=== PATIENT | female | born 1950 | race Caucasian/White ===

== ENCOUNTER 2018-08-31 06:02 | Emergency (ER) | payer MEDICARE, OTHER ==
--- NOTE | 2018-08-31 06:50 | ERPHSYRPT ---
- History of Present Illness Historian: patient Exam Limitations: no limitations Patient Subjective Stated Complaint: pt states she has been having abd pain, rt flank/back pain since approx 0300 Triage Nursing Assessment: pt alert and oriented, answers questions approp. pt ambulatory with limping gati ntoed. respirations nonlabored with rupert ngs cta. abd soft and nontender with bowel sounds present. no tendernes noted to rt back. pt unable to provide urine sample at this time. Timing/Duration: today, hour(s) (3), intermittent, sudden, worse Activities at Onset: none Quality: sharpness Abdominal Pain Onset Location: epigastric, flank (right) Pain Radiation: no radiation Severity of Pain-Max: severe Severity of Pain-Current: severe Modifying Factors: Improves With: nothing Associated Symptoms: nausea, vomiting Previous symptoms: same symptoms as today, recently seen (Jul 14) Hx Tetanus, Diphtheria Vaccination/Date Given: No Hx Influenza Vaccination/Date Given: Yes Hx Pneumococcal Vaccination/Date Given: Yes Immunizations Up to Date: No <NARGIS SAXENA - Last Filed: 08/31/18 06:55> <DEAN READ - Last Filed: 08/31/18 11:36> - History of Present Illness Time Seen by Provider: 08/31/18 06:37 Physician History: The patient is a 68-year-old female complaining of the return of her back and abdominal pain that began on July 14. She had a sudden onset of back and right sided abdominal pain on July 14 and was seen and evaluated extensively at [facility] at that time. She was given a pain medicine that she doesn 't recall at this time. Her pain went away. Since July 14, she has not felt "well". Her stools have become a reweaver brown in color and they're softer and consistency. Tonight at about 3 or 3:30 she had once again a sudden onset of right-sided back pain and right-sided flank pain and at times mid abdominal pain. The back pain seems to intensify then let up. The abdominal pain is currently not present. She had some nausea with some scant vomiting this morning. She denies fever or chills. She denies any urinary problems. She has had one colonoscopy at age 48. She is scheduled to have a colonoscopy on September 24. Her past medical history significant for right hip replacement and HTN. (NARGIS SAXENA) Allergies/Adverse Reactions: Penicillins Allergy (Verified 08/31/18 06:25) Home Medications: Azilsartan Med/Chlorthalidone [Edarbyclor 40-25 mg Tablet] 1 each PO DAILY 08/31 [History] Potassium Chloride 10 Meq Tab* [Klor Con 10 MEQ] 10 meq PO DAILY 08/31/18 [ History] - Review of Systems Constitutional: No Fever, No Chills Eyes: No Symptoms Ears, Nose, & Throat: No Symptoms Respiratory: No Cough, No Dyspnea Cardiac: No Chest Pain, No Edema, No Syncope Abdominal/Gastrointestinal: Abdominal Pain, Nausea, Vomiting Genitourinary Symptoms: No Dysuria Musculoskeletal: No Back Pain, No Neck Pain Skin: No Rash Neurological: No Dizziness, No Focal Weakness, No Sensory Changes Psychological: No Symptoms Endocrine: No Symptoms Hematologic/Lymphatic: No Symptoms Immunological/Allergic: No Symptoms All Other Systems: Reviewed and Negative <NARGIS SAXENA - Last Filed: 08/31/18 06:55> - Past Medical History Pertinent Past Medical History: Yes Neurological History: No Pertinent History Cardiac History: Hypertension Respiratory History: No Pertinent History Endocrine Medical History: No Pertinent History Musculoskeletal History: Arthritis - Past Surgical History Past Surgical History: Yes Musculoskeletal: Orthopedic Surgery Other Surgical History: total hip 2018 - Social History Smoking Status: Former smoker Exposure to second hand smoke: No Drug Use: none Patient Lives Alone: Yes <NARGIS SAXENA - Last Filed: 08/31/18 06:55> - Physical Exam General Appearance: moderate distress, obese Eye Exam: PERRL/EOMI, eyes nml inspection Ears, Nose, Throat Exam: normal ENT inspection, pharynx normal, moist mucous membranes Neck Exam: normal inspection, non-tender, supple, full range of motion Respiratory Exam: normal breath sounds, lungs clear, No respiratory distress Cardiovascular Exam: regular rate/rhythm, normal heart sounds Gastrointestinal/Abdomen Exam: soft, No tenderness Pelvic Exam: not done Rectal Exam: not done Back Exam: normal inspection, normal range of motion, No CVA tenderness, No vertebral tenderness, No point tenderness Extremity Exam: normal inspection, normal range of motion, pelvis stable Neurologic Exam: alert, oriented x 3, cooperative, normal mood/affect, nml cerebellar function, sensation nml, No motor deficits Skin Exam: normal color, warm, dry SpO2 Interpretation: normal SpO2: 99 Oxygen Delivery: Room Air <SAXENANARGIS - Last Filed: 08/31/18 06:55> - Nursing Vital Signs Nursing Vital Signs: Initial Vital Signs Temperature 97.3 F 08/31/18 06:08 Pulse Rate 91 H 08/31/18 06:08 Respiratory Rate 18 08/31/18 06:08 Blood Pressure 168/86 08/31/18 06:08 O2 Sat by Pulse Oximetry 99 08/31/18 06:08 Pain Scale Pain Intensity 4 - CT Exams Abdomen/Pelvis CT Interpretation: Discussed w/radiologist (normal appendix, scattered small mid abdominal mesenteric nodes with stranding, probable mesenteric adenitis, Small hiatal hernia, splenic granulomas. distended gallbladder without stones, 6mm nonobstructing right renal stone, sigmoid diverticulosis ) Chest CT Interpretation: Discussed w/radiologist, No PE - Radiology Ultrasound Exam Gallbladder Ultrasound: discussed w/radiologist (DISTENDED GALLBLADDER WITH A NON-MOBILE LINEAR, HYPERECHOGENICITY DETAILED EITHER POLYP VERSUS GALLBLADDER FOLD VS CALCULUS, NEGATIVE FOR CHOLECYSTITIS OR BILIARY DISTENTION) <DEAN READ - Last Filed: 08/31/18 11:36> Ordered Tests: Active Orders 24 hr Category Date Time Status Clean Catch Urine Specimen STAT Care 08/31/18 06:52 Active EKG-ER Only STAT Care 08/31/18 06:52 Active IV Insertion STAT Care 08/31/18 06:52 Active ABDOMEN AND PELVIS W/0 CONTRAS [CT] Stat Exams 08/31/18 06:53 Completed CHEST WITH CONTRAST [CT] Stat Exams 08/31/18 08:20 Completed GALLBLADDER [US] Stat Exams 08/31/18 10:17 Completed AMYLASE Stat Lab 08/31/18 06:45 Completed CBC W DIFF Stat Lab 08/31/18 06:45 Completed CMP Stat Lab 08/31/18 06:45 Completed D-DIMER QUANTITATION Stat Lab 08/31/18 08:04 Completed LIPASE Stat Lab 08/31/18 06:45 Completed TROPONIN Q3H Lab 08/31/18 06:45 Completed UA W/RFX UR CULTURE Stat Lab 08/31/18 09:31 Completed Medication Summary Discontinued Medications Generic Name Dose Route Start Last Admin Trade Name Freq PRN Reason Stop Dose Admin Hydromorphone HCl 1 mg 08/31/18 06:52 08/31/18 07:06 Hydromorphone 1 Mg/Ml Ampule IV 08/31/18 06:53 1 mg STAT ONE Administration Hydromorphone HCl Confirm 08/31/18 06:57 Hydromorphone 1 Mg/Ml Ampule Administered 08/31/18 06:58 Dose 1 mg .ROUTE .STK-MED ONE Sodium Chloride 1,000 mls @ 999 mls/hr 08/31/18 06:52 08/31/18 07:03 Sodium Chloride 0.9% 1000 Ml IV 08/31/18 07:52 999 mls/hr .Q1H1M STA Administration Sodium Chloride Confirm 08/31/18 06:58 Sodium Chloride 0.9% 1000 Ml Administered 08/31/18 06:59 Dose 1,000 mls @ ud .ROUTE .STK-MED ONE Ketorolac Tromethamine 15 mg 08/31/18 06:54 08/31/18 07:10 Toradol 30 Mg Injection IV 08/31/18 06:55 15 mg STAT ONE Administration Ketorolac Tromethamine Confirm 08/31/18 06:57 Toradol 30 Mg Injection Administered 08/31/18 06:58 Dose 30 mg .ROUTE .STK-MED ONE Promethazine HCl 12.5 mg 08/31/18 06:52 08/31/18 07:06 Phenergan 25 Mg Inj IV 08/31/18 06:53 12.5 mg STAT ONE Administration Promethazine HCl Confirm 08/31/18 06:57 Phenergan 25 Mg Inj Administered 08/31/18 06:58 Dose 25 mg .ROUTE .STK-MED ONE Lab/Rad Data: Laboratory Result Diagrams 08/31/18 06:45 08/31/18 06:45 Laboratory Results 08/31/18 08/31/18 08/31/18 Range/Units 09:31 08:04 06:45 WBC (4.0-10.5) K/mm3 RBC (4.1-5.4) M/mm3 Hgb (12.0-16.0) gm/dl Hct (35-47) % MCV (78-100) fl MCH (26-32) pg MCHC (32-36) g/dl RDW (11.5-14.0) % Plt Count (150-450) K/mm3 MPV (6-9.5) fl Gran % (36.0-66.0) % Eos # (Auto) (0-0.5) Absolute Lymphs (auto) (1.0-4.6) Absolute Monos (auto) (0.0-1.3) Lymphocytes % (24.0-44.0) % Monocytes % (0.0-12.0) % Eosinophils % (0.00-5.0) % Basophils % (0.0-0.4) % Absolute Granulocytes (1.4-6.9) Basophils # (0-0.4) D-Dimer 966 H* (215-500) ng/mL Sodium (137-145) mmol/L Potassium (3.5-5.1) mmol/L Chloride (98-107) mmol/L Carbon Dioxide (22-30) mmol/L Anion Gap (5-15) MEQ/L BUN (7-17) mg/dL Creatinine (0.52-1.04) mg/dL Estimated GFR ML/MIN Glucose (74-106) mg/dL Calcium (8.4-10.2) mg/dL Total Bilirubin (0.2-1.3) mg/dL AST (14-36) U/L ALT (0-35) U/L Alkaline Phosphatase (38-126) U/L Troponin I < 0.012 (0.000-0.034) ng/mL Serum Total Protein (6.3-8.2) g/dL Albumin (3.5-5.0) g/dL Amylase (30-110) U/L Lipase (23-300) U/L Urine Color STRAW (YELLOW) Urine Appearance CLEAR (CLEAR) Urine pH 5.0 (5-6) Ur Specific [place] 1.020 (1.005-1.025) Urine Protein NEGATIVE (Negative) Urine Ketones NEGATIVE (NEGATIVE) Urine Blood SMALL (0-5) [place]/ul Urine Nitrite NEGATIVE (NEGATIVE) Urine Bilirubin NEGATIVE (NEGATIVE) Urine Urobilinogen NEGATIVE (0-1) mg/dL Ur Leukocyte Esterase NEGATIVE (NEGATIVE) Urine WBC (Auto) NONE (0-5) /HPF Urine RBC (Auto) NONE (0-2) /HPF U Epithel Cells (Auto) RARE (FEW) /HPF Urine Bacteria (Auto) NONE SEEN (NEGATIVE) /HPF Urine Mucus (Auto) SLIGHT (NEGATIVE) /HPF Urine Culture Reflexed NO (NO) Urine Glucose NEGATIVE (NEGATIVE) mg/dL 08/31/18 08/31/18 Range/Units 06:45 06:45 WBC 8.4 (4.0-10.5) K/mm3 RBC 4.52 (4.1-5.4) M/mm3 Hgb 12.4 (12.0-16.0) gm/dl Hct 38.1 (35-47) % MCV 84.3 (78-100) fl MCH 27.4 (26-32) pg MCHC 32.5 (32-36) g/dl RDW 14.5 H (11.5-14.0) % Plt Count 255 (150-450) K/mm3 MPV 9.4 (6-9.5) fl Gran % 69.0 H (36.0-66.0) % Eos # (Auto) 0.13 (0-0.5) Absolute Lymphs (auto) 1.70 (1.0-4.6) Absolute Monos (auto) 0.74 (0.0-1.3) Lymphocytes % 20.2 L (24.0-44.0) % Monocytes % 8.8 (0.0-12.0) % Eosinophils % 1.5 (0.00-5.0) % Basophils % 0.5 (0.0-0.4) % Absolute Granulocytes 5.82 (1.4-6.9) Basophils # 0.04 (0-0.4) D-Dimer (215-500) ng/mL Sodium 140 (137-145) mmol/L Potassium 3.5 (3.5-5.1) mmol/L Chloride 105 (98-107) mmol/L Carbon Dioxide 25 (22-30) mmol/L Anion Gap 13.4 (5-15) MEQ/L BUN 21 H (7-17) mg/dL Creatinine 0.79 (0.52-1.04) mg/dL Estimated GFR > 60.0 ML/MIN Glucose 129 H (74-106) mg/dL Calcium 10.0 (8.4-10.2) mg/dL Total Bilirubin 0.30 (0.2-1.3) mg/dL AST 19 (14-36) U/L ALT 16 (0-35) U/L Alkaline Phosphatase 130 H (38-126) U/L Troponin I (0.000-0.034) ng/mL Serum Total Protein 7.7 (6.3-8.2) g/dL Albumin 4.3 (3.5-5.0) g/dL Amylase 85 (30-110) U/L Lipase 243 (23-300) U/L Urine Color (YELLOW) Urine Appearance (CLEAR) Urine pH (5-6) Ur Specific [place] (1.005-1.025) Urine Protein (Negative) Urine Ketones (NEGATIVE) Urine Blood (0-5) [place]/ul Urine Nitrite (NEGATIVE) Urine Bilirubin (NEGATIVE) Urine Urobilinogen (0-1) mg/dL Ur Leukocyte Esterase (NEGATIVE) Urine WBC (Auto) (0-5) /HPF Urine RBC (Auto) (0-2) /HPF U Epithel Cells (Auto) (FEW) /HPF Urine Bacteria (Auto) (NEGATIVE) /HPF Urine Mucus (Auto) (NEGATIVE) /HPF Urine Culture Reflexed (NO) Urine Glucose (NEGATIVE) mg/dL <NARGIS SAXENA - Last Filed: 08/31/18 06:55> - Progress Counseled pt/family regarding: lab results, diagnosis, need for follow-up, rad results <DEAN READ - Last Filed: 08/31/18 11:36> - Progress Progress Note: 08/31/18 06:56 Pts care discussed and care transferred to Dr Read at 07:00. (NARGIS SAXENA) 08/31/18 08:02 CHEST EXAM: THERE IS TENDERNESS OVER RIGHT POSTERIOR WALL PARASPINAL THORACIC SPINE FROM THE 8TH TO 10TH RIBS NO CREPITUS OR SWELLING ABDOMEN: SOFT ACTIVE BOWEL SOUNDS AND WITH PERIUMBILICAL TENDERNES WITHOUT GUARDING OR REBOUND TENDERNESS. 08/31/18 08:19-ELEVATED D-DIMER 966 WITH RIGTH POSTERIOR CHEST PAIN AND TENDERNESS, (DEAN READ) <NARGIS SAXENA - Last Filed: 08/31/18 06:55> - Departure Time of Disposition: 11:35 Departure Disposition: Home Critical Care Time: No <DEAN READ - Last Filed: 08/31/18 11:36> - Departure Clinical Impression: ACUTE ABDOMINAL PAIN Condition: Stable Referrals: ROSANGELA DICKINSON [Primary Care Provider] - Additional Instructions: ZOFRAN 4MG EVERY 6 HOURS FOR NAUSEA NEEDED. CONSULT YOUR PRIMARY CARE PROVIDER FOR FOLLOWUP IN 1 WEEK. Prescriptions: Ondansetron ODT 4 MG [Zofran Odt 4 mg] 4 mg PO Q6H PRN PRN #8 tab.rapdis PRN Reason: Nausea
[2018-08-31] MEDS ORDERED: Sodium Chloride 0.9% 1000 ML 1,000 ML IV STA (06:52)
[2018-08-31] MEDS ORDERED: Hydromorphone 1 mg/ml Ampule IV ONE (06:52)
[2018-08-31] MEDS ORDERED: Phenergan 25 MG INJ IV ONE (06:52)
[2018-08-31] MEDS ORDERED: TORAdol 30 mg Injection IV ONE (06:54)
[2018-08-31] MEDS ORDERED: Phenergan 25 MG INJ ONE (06:57)
[2018-08-31] MEDS ORDERED: Hydromorphone 1 mg/ml Ampule ONE (06:57)
[2018-08-31] MEDS ORDERED: TORAdol 30 mg Injection ONE (06:57)
[2018-08-31] MEDS ORDERED: Sodium Chloride 0.9% 1000 ML 1,000 ML ONE (06:58)
[2018-08-31 07:00] LABS: BASOPHIL % 0.5 % (0.0-0.4); Basophil (Absolute #) 0.04 (0-0.4); Eosinophil % 1.5 % (0.00-5.0); Eosinophil (Absolute #) 0.13 (0-0.5); Granulocyte Absolute (ANC) 5.82 (1.4-6.9); Hematocrit 38.1 % (35-47); Hemoglobin 12.4 gm/dl (12.0-16.0); Lymphocytes % 20.2 % (24.0-44.0); Mean Cell Volume 84.3 fl (78-100); Mean Corpuscular Hemoglobin 27.4 pg (26-32); Mean Corpuscular Hgb Concent. 32.5 g/dl (32-36); Mean Platelet Volume 9.4 fl (6-9.5); Monocyte (Absolute #) 0.74 (0.0-1.3); Monocytes % 8.8 % (0.0-12.0); Platelet Count 255 K/mm3 (150-450); Red Blood Count 4.52 M/mm3 (4.1-5.4); Red Cell Distribution Width 14.5 % (11.5-14.0); White Blood Count 8.4 K/mm3 (4.0-10.5)
[2018-08-31 07:13] LABS: ALBUMIN 4.3 g/dL (3.5-5.0); ALKALINE PHOSPHATASE 130 U/L (38-126); AMYLASE 85 U/L (30-110); ANION GAP 13.4 MEQ/L (5-15); BLOOD UREA NITROGEN 21 mg/dL (7-17); CHLORIDE 105 mmol/L (98-107); Carbon Dioxide 25 mmol/L (22-30); Creatinine 1 0.79 mg/dL (0.52-1.04); Glucose 129 mg/dL (74-106); LIPASE 243 U/L (23-300); Potassium 3.5 mmol/L (3.5-5.1); SGOT/AST 19 U/L (14-36); SGPT/ALT 16 U/L (0-35); SODIUM 140 mmol/L (137-145); Total Protein 7.7 g/dL (6.3-8.2)
--- NOTE | 2018-08-31 09:37 | XRAY ---
Indication: Posterior chest wall pain. Nausea and vomiting. Elevated d-dimer. Multiple contiguous axial images obtained through the chest using 100 cc Isovue 370 contrast and PE protocol. Comparison: None There is good opacification of the pulmonary arteries to include the lobar and segmental branches. No filling defect or pulmonary embolus. Heart is borderline enlarged. Aorta is normal in course and caliber. No pathologic mediastinal/hilar lymphadenopathy. Small hiatal hernia. Examination of the lung parenchyma demonstrates mild bilateral dependent atelectasis and minimal bibasilar fibrosis/scarring. No suspicious pulmonary mass, infiltrate, or effusion. Bony thorax intact with mild degenerative changes throughout the spine. CT abdomen reported separately. Impression: 1. Negative pulmonary embolus. No acute cardiopulmonary abnormalities. 2. Incidental borderline cardiomegaly and small hiatal hernia. CT DI 23.68
--- NOTE | 2018-08-31 09:41 | XRAY ---
Indication: Right back pain. History kidney stone. Multiple contiguous axial images obtained through the abdomen and pelvis without contrast as ordered. Comparison: None CT chest reported separately. Right hip bipolar prosthesis produces beam artifact. Small hiatal hernia. Noncontrasted stomach and bowel loops appear nonobstructed. Normal appendix. Scattered descending and sigmoid diverticulosis without diverticulitis. No free fluid/air. Mean abdomen demonstrates scattered centimeter/subcentimeter mesenteric nodes with stranding favoring mesenteric adenitis. 6 mm nonobstructing right mid renal calculus and 1.7 cm left mid renal exophytic cyst. Distended gallbladder without gallstones or biliary distention. Hepatic/splenic calcified granulomas. Remaining liver, pancreas, adrenal glands, spleen, kidneys, ureters, bladder, and uterus appear unremarkable for noncontrast exam. Minimal aortoiliac calcifications without AAA. Osseous structures intact with mild degenerative changes throughout the thoracolumbar spine. Mild levoscoliosis and right hip arthroplasty. No ventral or inguinal hernias. Impression: 1. Scattered mid abdomen mesenteric nodes with stranding favoring mesenteric adenitis. 2. Distended gallbladder without gallstones. Gallbladder sonogram may yield further information if clinically warranted. 3. Incidental hiatal hernia, nonobstructing right renal calculus, left renal cyst, colonic diverticulosis, and evidence for old granulomatous disease. CT DI 23.68
[2018-08-31 09:44] LABS: Appearance CLEAR (CLEAR); Bilirubin NEGATIVE (NEGATIVE); Blood SMALL Ery/ul (0-5); Glucose NEGATIVE (NEGATIVE); Ketones NEGATIVE (NEGATIVE); Leukocyte Esterase NEGATIVE (NEGATIVE); Nitrite NEGATIVE (NEGATIVE); Protein,Urine Dip NEGATIVE (Negative); Urobilinogen NEGATIVE mg/dL (0-1)
--- NOTE | 2018-08-31 10:42 | XRAY ---
Indication: Abdomen pain. Distended gallbladder on same-day CT. Two-dimensional gallbladder sonogram performed. Comparison: None Gallbladder appears moderately distended. There is a 1.2 cm non-mobile linear hyperechogenicity near the neck of the gallbladder either polyp versus gallbladder fold versus calculus. No gallbladder wall thickening or pericholecystic fluid. Common bile duct measures 6.2 mm. No intrahepatic biliary distention. Mild fatty echogenic liver without focal solid/cystic mass. No ascites. Remaining visualized portions of the pancreas and right kidney appear sonographically unremarkable. Right kidney measures 10 cm in length. Impression: 1. Distended gallbladder with a non-mobile linear hyperechogenicity as detailed either polyp versus gallbladder fold versus calculus. Negative for cholecystitis or biliary distention. 2. Fatty echogenic liver.
[2018-08-31 10:55] VITALS: BP 133/65
[2018-08-31 12:05] VITALS: PULSE 76; O2SAT 98
== END 2018-08-31 11:50 | disposition home or self-care (01) ==
LOC: ED 06:02
DX: R10.13 Epigastric pain (principal); R11.2 Nausea with vomiting, unspecified; R10.9 Unspecified abdominal pain; R07.9 Chest pain, unspecified; R79.1 Abnormal coagulation profile; Z79.899 Other long term (current) drug therapy
CPT/HCPCS: 36000; 36415; 71260; 74176; 76705; 80053; 81001; 82150; 83690; 84484; 85025; 85379; 93005; 96360; 96374; 96375; 99284; J1170; J1885; J2550

== ENCOUNTER 2018-09-24 05:58 | Day surgery (SDC) | payer MEDICARE, OTHER ==
[2018-09-24] MEDS ORDERED: DIPRIVAN 200 MG/20 ML IV ONE (05:59)
[2018-09-24] MEDS ORDERED: Ketamine HCl 50 MG/ML IJ ONE (05:59)
[2018-09-24] MEDS ORDERED: Lactated Ringers 1,000 ML IV SCH (06:30)
--- NOTE | 2018-09-24 09:13 | OP ---
AMENDED REPORT: SURGERY DATE/TIME: 09/24/2018 0840 PREOPERATIVE DIAGNOSIS: Screening exam. POSTOPERATIVE DIAGNOSIS: Moderate to severe sigmoid diverticulosis otherwise normal colon. PROCEDURE: Colonoscopy. SURGEON: Dr. Jerry. ANESTHESIA: MAC. Medications given by anesthesia department. HISTORY: The patient is a 68 year-old white female presenting now for colonoscopic evaluation. She reports she has had some change in her bowel habits and some back pain. She reports it has been 20 years since her previous since her previous colonoscopy. The patient was felt to need to have endoscopic evaluation. She was appraised of the risks of the procedure including the risk of perforation, phlebitis, untoward reaction to medication, bleeding and missed lesions. The patient verbalized her understanding and desired to have the procedure performed. DESCRIPTION OF PROCEDURE: The patient was given the medications by the anesthesia department. She had continuous pulse oximetry, ECG monitoring, intermittent blood pressure monitoring and tidal CO2 monitoring during the examination. She was placed in the left lateral decubitus position. A digital rectal examination was performed and revealed normal anal sphincter tone and no masses. The flexible Olympus pediatric colonoscope was used to intubate the rectum. A view of the colon was developed sequentially to the cecum. Upon insertion and withdrawal was noted moderate to severe sigmoid diverticulosis. No other mucosal lesions being encountered the scope was removed from the patient who tolerated the procedure well and was sent back to OP recovery in good condition. The prep was noted to be fair to good.
[2018-09-24 10:39] VITALS: BP 123/67; PULSE 57; O2SAT 98
== END 2018-09-24 10:45 | disposition home or self-care (01) ==
LOC: SDC 05:58
PROVIDERS: ATTEND Family Medicine
DX: Z12.11 Encounter for screening for malignant neoplasm of colon (principal); K57.30 Diverticulosis of large intestine without perforation or abscess without bleeding; R19.4 Change in bowel habit; I10 Essential (primary) hypertension; K21.9 Gastro-esophageal reflux disease without esophagitis
CPT/HCPCS: 99100; J2704

== ENCOUNTER 2018-10-11 13:17 | Emergency (ER) | payer MEDICARE, OTHER ==
[2018-10-11] MEDS ORDERED: Zofran 4 MG/2 ML VIAL IV ONE (13:53)
[2018-10-11] MEDS ORDERED: Hydromorphone 1 mg/ml Ampule IV ONE (13:53)
[2018-10-11] MEDS ORDERED: Sodium Chloride 0.9% 1000 ML 1,000 ML IV STA (13:53)
--- NOTE | 2018-10-11 13:57 | ERPHSYRPT ---
- History of Present Illness Time Seen by Provider: 10/11/18 13:50 Historian: patient, family Exam Limitations: no limitations Patient Subjective Stated Complaint: ruq abd pain since 629 today that radiates into her back. hx gallbladder disease and is supposed to have gb surgery on oct 29. Triage Nursing Assessment: ambulated to room per self. skin w/d, color normal, resp easy. holding abd, moaning occasionally. bowel sounds normal. abd soft, tender. Physician History: The patient is a 68-year-old female complaining of right upper quadrant pain radiating through to her back that began at 6:30 this morning or about 7 hours ago. Since July, she is had "gallbladder attacks". The attacks have only lasted several minutes. This one has lasted much longer. She vomited slightly. She has seen a surgeon and is scheduled to have her gallbladder removed October 29. She did not eat anything this morning prior to the attack. She denies fever or chills. She denies diarrhea. Her past medical history is significant for hypertension, GERD, and gallbladder problems. Timing/Duration: today, hour(s) (7), constant, sudden, worse Activities at Onset: none Quality: sharpness, stabbing Abdominal Pain Onset Location: RUQ Pain Radiation: back Severity of Pain-Max: severe Severity of Pain-Current: severe Modifying Factors: Improves With: vomiting Associated Symptoms: nausea, vomiting Previous symptoms: same symptoms as today, recently seen Allergies/Adverse Reactions: Penicillins Allergy (Verified 10/11/18 13:32) Home Medications: Azilsartan Med/Chlorthalidone [Edarbyclor 40-25 mg Tablet] 1 each PO DAILY 08/31 [History] Potassium Chloride 10 Meq Tab* [Klor Con 10 MEQ] 10 meq PO DAILY 08/31/18 [ History] Aspirin EC 81 mg [Ecotrin 81 mg] 81 mg PO DAILY 09/13/18 [History] Esomeprazole Magnesium [Nexium] 40 mg PO DAILY 10/11/18 [History] Hx Tetanus, Diphtheria Vaccination/Date Given: No Hx Influenza Vaccination/Date Given: Yes Hx Pneumococcal Vaccination/Date Given: Yes - Review of Systems Constitutional: No Fever, No Chills Eyes: No Symptoms Ears, Nose, & Throat: No Symptoms Respiratory: No Cough, No Dyspnea Cardiac: No Chest Pain, No Edema, No Syncope Abdominal/Gastrointestinal: Abdominal Pain, Nausea, Vomiting Genitourinary Symptoms: No Dysuria Musculoskeletal: No Back Pain, No Neck Pain Skin: No Rash Neurological: No Dizziness, No Focal Weakness, No Sensory Changes Psychological: No Symptoms Endocrine: No Symptoms Hematologic/Lymphatic: No Symptoms Immunological/Allergic: No Symptoms All Other Systems: Reviewed and Negative - Past Medical History Pertinent Past Medical History: Yes Neurological History: No Pertinent History ENT History: No Pertinent History Cardiac History: Hypertension Respiratory History: No Pertinent History Endocrine Medical History: No Pertinent History Musculoskeletal History: Arthritis GI Medical History: GERD, Gallbladder Disease History: No Pertinent History Psycho-Social History: No Pertinent History Female Reproductive Disorders: No Pertinent History - Past Surgical History Past Surgical History: Yes Neuro Surgical History: No Pertinent History Cardiac: No Pertinent History Respiratory: No Pertinent History Gastrointestinal: No Pertinent History Genitourinary: No Pertinent History Musculoskeletal: Orthopedic Surgery Female Surgical History: No Pertinent History Other Surgical History: total hip 2018 right - Social History Smoking Status: Former smoker Exposure to second hand smoke: No Drug Use: none Patient Lives Alone: Yes - Female History Hx Now: No - Nursing Vital Signs Nursing Vital Signs: Initial Vital Signs Temperature 97.5 F 10/11/18 13:24 Pulse Rate 82 10/11/18 13:24 Respiratory Rate 18 10/11/18 13:24 Blood Pressure 148/102 10/11/18 13:24 O2 Sat by Pulse Oximetry 96 10/11/18 13:24 Pain Scale Pain Intensity 2 - Physical Exam General Appearance: severe distress Eye Exam: PERRL/EOMI, eyes nml inspection Ears, Nose, Throat Exam: normal ENT inspection, pharynx normal, moist mucous membranes Neck Exam: normal inspection, non-tender, supple, full range of motion Respiratory Exam: normal breath sounds, lungs clear, No respiratory distress Cardiovascular Exam: regular rate/rhythm, normal heart sounds Gastrointestinal/Abdomen Exam: tenderness (RUQ) Pelvic Exam: not done Rectal Exam: not done Back Exam: normal inspection, normal range of motion, No CVA tenderness, No vertebral tenderness Extremity Exam: normal inspection, normal range of motion, pelvis stable Neurologic Exam: alert, oriented x 3, cooperative, normal mood/affect, nml cerebellar function, sensation nml, No motor deficits Skin Exam: normal color, warm, dry SpO2 Interpretation: normal SpO2: 96 O2 Delivery: Room Air - Course EKG Interpreted by Me: RATE, Sinus Rhythm, NORMAL AXIS, NORMAL INTERVALS, NORMAL QRS, NORMAL ST-T, Other (No change in EKG compared to EKG from 08/31/18.) - Radiology Ultrasound Exam Gallbladder Ultrasound: tele radiology report (per Dr Huerta), gall bladder stones (stable 1.6 cm non-mobile gallstone near neck of GB. No cholecystitis ors biliary distention.) Ordered Tests: Active Orders 24 hr Category Date Time Status Body And Frame Man STAT Care 10/11/18 14:06 Active EKG-ER Only STAT Care 10/11/18 13:53 Active IV Insertion STAT Care 10/11/18 13:53 Active Oxygen-ED Only Nasal Cannula 2 lpm Care 10/11/18 14:05 Active Pulse Oximetry (ED) STAT Care 10/11/18 14:05 Active GALLBLADDER [US] Stat Exams 10/11/18 13:54 Completed AMYLASE Stat Lab 10/11/18 14:00 Completed CBC W DIFF Stat Lab 10/11/18 14:00 Completed CMP Stat Lab 10/11/18 14:00 Completed CULTURE,URINE Stat Lab 10/11/18 14:25 Received LIPASE Stat Lab 10/11/18 14:00 Completed Lactic Acid Stat Lab 10/11/18 14:04 Results TROPONIN Q3H Lab 10/11/18 14:15 Completed TROPONIN Q3H Lab 10/11/18 17:15 Ordered TROPONIN Q3H Lab 10/11/18 20:15 Ordered TROPONIN Q3H Lab 10/11/18 23:15 Ordered TROPONIN Q3H Lab 10/12/18 02:15 Ordered UA W/RFX UR CULTURE Stat Lab 10/11/18 14:25 Completed Medication Summary Discontinued Medications Generic Name Dose Route Start Last Admin Trade Name Freq PRN Reason Stop Dose Admin Hydromorphone HCl 2 mg 10/11/18 13:53 10/11/18 14:03 Hydromorphone 1 Mg/Ml Ampule IV 10/11/18 13:54 2 mg STAT ONE Administration Hydromorphone HCl Confirm 10/11/18 13:59 Hydromorphone 1 Mg/Ml Ampule Administered 10/11/18 14:00 Dose 2 mg .ROUTE .STK-MED ONE Sodium Chloride 1,000 mls @ 999 mls/hr 10/11/18 13:53 10/11/18 14:04 Sodium Chloride 0.9% 1000 Ml IV 10/11/18 14:53 999 mls/hr .Q1H1M STA Administration Sodium Chloride Confirm 10/11/18 13:59 Sodium Chloride 0.9% 1000 Ml Administered 10/11/18 14:00 Dose 1,000 mls @ ud .ROUTE .STK-MED ONE Ondansetron HCl 4 mg 10/11/18 13:53 10/11/18 14:03 Zofran 4 Mg/2 Ml Vial IV 10/11/18 13:54 4 mg STAT ONE Administration Ondansetron HCl Confirm 10/11/18 13:59 Zofran 4 Mg/2 Ml Vial Administered 10/11/18 14:00 Dose 4 mg .ROUTE .STK-MED ONE Lab/Rad Data: Laboratory Result Diagrams 10/11/18 14:00 10/11/18 14:00 Laboratory Results 10/11/18 10/11/18 10/11/18 Range/Units 14:25 14:15 14:04 WBC (4.0-10.5) K/mm3 RBC (4.1-5.4) M/mm3 Hgb (12.0-16.0) gm/dl Hct (35-47) % MCV (78-100) fl MCH (26-32) pg MCHC (32-36) g/dl RDW (11.5-14.0) % Plt Count (150-450) K/mm3 MPV (6-9.5) fl Gran % (36.0-66.0) % Eos # (Auto) (0-0.5) Absolute Lymphs (auto) (1.0-4.6) Absolute Monos (auto) (0.0-1.3) Lymphocytes % (24.0-44.0) % Monocytes % (0.0-12.0) % Eosinophils % (0.00-5.0) % Basophils % (0.0-0.4) % Absolute Granulocytes (1.4-6.9) Basophils # (0-0.4) Sodium (137-145) mmol/L Potassium (3.5-5.1) mmol/L Chloride (98-107) mmol/L Carbon Dioxide (22-30) mmol/L Anion Gap (5-15) MEQ/L BUN (7-17) mg/dL Creatinine (0.52-1.04) mg/dL Estimated GFR ML/MIN Glucose (74-106) mg/dL Lactic Acid 3.0 H (0.4-2.0) Calcium (8.4-10.2) mg/dL Total Bilirubin (0.2-1.3) mg/dL AST (14-36) U/L ALT (0-35) U/L Alkaline Phosphatase (38-126) U/L Troponin I < 0.012 (0.000-0.034) ng/mL Serum Total Protein (6.3-8.2) g/dL Albumin (3.5-5.0) g/dL Amylase (30-110) U/L Lipase (23-300) U/L Urine Color YELLOW (YELLOW) Urine Appearance CLOUDY (CLEAR) Urine pH 5.0 (5-6) Ur Specific [place] 1.024 (1.005-1.025) Urine Protein 30 (Negative) Urine Ketones NEGATIVE (NEGATIVE) Urine Blood SMALL (0-5) [place]/ul Urine Nitrite NEGATIVE (NEGATIVE) Urine Bilirubin NEGATIVE (NEGATIVE) Urine Urobilinogen NEGATIVE (0-1) mg/dL Ur Leukocyte Esterase NEGATIVE (NEGATIVE) Urine WBC (Auto) 3-5 (0-5) /HPF Urine RBC (Auto) 0-2 (0-2) /HPF U Hyaline Cast (Auto) 6-10 (0-2) /LPF U Epithel Cells (Auto) NONE (FEW) /HPF Urine Bacteria (Auto) FEW (NEGATIVE) /HPF Urine Mucus (Auto) MANY (NEGATIVE) /HPF Urine Culture Reflexed YES (NO) Urine Glucose NEGATIVE (NEGATIVE) mg/dL 10/11/18 10/11/18 Range/Units 14:00 14:00 WBC 8.9 (4.0-10.5) K/mm3 RBC 4.72 (4.1-5.4) M/mm3 Hgb 12.9 (12.0-16.0) gm/dl Hct 38.9 (35-47) % MCV 82.4 (78-100) fl MCH 27.3 (26-32) pg MCHC 33.2 (32-36) g/dl RDW 14.0 (11.5-14.0) % Plt Count 279 (150-450) K/mm3 MPV 9.1 (6-9.5) fl Gran % 85.1 H (36.0-66.0) % Eos # (Auto) 0 (0-0.5) Absolute Lymphs (auto) 0.93 L (1.0-4.6) Absolute Monos (auto) 0.36 (0.0-1.3) Lymphocytes % 10.5 L (24.0-44.0) % Monocytes % 4.1 (0.0-12.0) % Eosinophils % 0.0 (0.00-5.0) % Basophils % 0.3 (0.0-0.4) % Absolute Granulocytes 7.53 H (1.4-6.9) Basophils # 0.03 (0-0.4) Sodium 138 (137-145) mmol/L Potassium 3.4 L (3.5-5.1) mmol/L Chloride 101 (98-107) mmol/L Carbon Dioxide 25 (22-30) mmol/L Anion Gap 14.8 (5-15) MEQ/L BUN 30 H (7-17) mg/dL Creatinine 1.06 H (0.52-1.04) mg/dL Estimated GFR 54.5 ML/MIN Glucose 160 H (74-106) mg/dL Lactic Acid (0.4-2.0) Calcium 9.9 (8.4-10.2) mg/dL Total Bilirubin 0.40 (0.2-1.3) mg/dL AST 25 (14-36) U/L ALT 22 (0-35) U/L Alkaline Phosphatase 121 (38-126) U/L Troponin I (0.000-0.034) ng/mL Serum Total Protein 8.1 (6.3-8.2) g/dL Albumin 4.4 (3.5-5.0) g/dL Amylase 88 (30-110) U/L Lipase 202 (23-300) U/L Urine Color (YELLOW) Urine Appearance (CLEAR) Urine pH (5-6) Ur Specific [place] (1.005-1.025) Urine Protein (Negative) Urine Ketones (NEGATIVE) Urine Blood (0-5) [place]/ul Urine Nitrite (NEGATIVE) Urine Bilirubin (NEGATIVE) Urine Urobilinogen (0-1) mg/dL Ur Leukocyte Esterase (NEGATIVE) Urine WBC (Auto) (0-5) /HPF Urine RBC (Auto) (0-2) /HPF U Hyaline Cast (Auto) (0-2) /LPF U Epithel Cells (Auto) (FEW) /HPF Urine Bacteria (Auto) (NEGATIVE) /HPF Urine Mucus (Auto) (NEGATIVE) /HPF Urine Culture Reflexed (NO) Urine Glucose (NEGATIVE) mg/dL - Progress Progress: improved Progress Note: 10/11/18 15:55 I discussed the findings with Dr. Spencer. He has rescheduled her gallbladder surgery for 10/15/18. His office will call the patient tomorrow for time. The patient is to eat nothing by mouth after midnight on Monday night. She is also to stop her aspirin today. The patient was happy that she could get the surgery done quickly. 10/11/18 15:59 I have discussed pt findings with pt's son-in-law, Dr Stewart Franco. Discussed with .: Johanna Counseled pt/family regarding: lab results, diagnosis, rad results - Departure Time of Disposition: 15:56 Departure Disposition: Home Clinical Impression: Biliary colic Condition: Stable Critical Care Time: No Referrals: ROSANGELA DICKINSON [Primary Care Provider] - Additional Instructions: You have biliary colic. You were given Dilaudid 2 mg, Zofran 4 mg, and fluids by IV in the ER. I spoke with Dr. Spencer who has rescheduled your surgery for 10/15/18. His office will call you tomorrow for the time of arrival on Monday. You're to eat or drink nothing after midnight on Monday. Stopped taking your daily aspirin immediately and do not resume it until released to do so. If you have any more gallbladder attacks, do not hesitate to return to the ER.
[2018-10-11] MEDS ORDERED: Sodium Chloride 0.9% 1000 ML 1,000 ML ONE (13:59)
[2018-10-11] MEDS ORDERED: Zofran 4 MG/2 ML VIAL ONE (13:59)
[2018-10-11] MEDS ORDERED: Hydromorphone 1 mg/ml Ampule ONE (13:59)
[2018-10-11 14:09] LABS: BASOPHIL % 0.3 % (0.0-0.4); Basophil (Absolute #) 0.03 (0-0.4); Eosinophil (Absolute #) 0 (0-0.5); Granulocyte Absolute (ANC) 7.53 (1.4-6.9); Granulocytes % 85.1 % (36.0-66.0); Hematocrit 38.9 % (35-47); Hemoglobin 12.9 gm/dl (12.0-16.0); Lymphocyte (Absolute #) 0.93 (1.0-4.6); Lymphocytes % 10.5 % (24.0-44.0); Mean Cell Volume 82.4 fl (78-100); Mean Corpuscular Hemoglobin 27.3 pg (26-32); Mean Corpuscular Hgb Concent. 33.2 g/dl (32-36); Mean Platelet Volume 9.1 fl (6-9.5); Monocyte (Absolute #) 0.36 (0.0-1.3); Monocytes % 4.1 % (0.0-12.0); Platelet Count 279 K/mm3 (150-450); Red Blood Count 4.72 M/mm3 (4.1-5.4); White Blood Count 8.9 K/mm3 (4.0-10.5)
[2018-10-11 14:24] LABS: ALBUMIN 4.4 g/dL (3.5-5.0); ANION GAP 14.8 MEQ/L (5-15); BILIRUBIN,TOTAL 0.4 mg/dL (0.2-1.3); Calcium 9.9 mg/dL (8.4-10.2); Creatinine 1 1.06 mg/dL (0.52-1.04); Potassium 3.4 mmol/L (3.5-5.1); Total Protein 8.1 g/dL (6.3-8.2)
[2018-10-11 14:38] LABS: Appearance CLOUDY (CLEAR); Bacteria FEW /HPF (NEGATIVE); Bilirubin NEGATIVE (NEGATIVE); Blood SMALL Ery/ul (0-5); Glucose NEGATIVE (NEGATIVE); Ketones NEGATIVE (NEGATIVE); Leukocyte Esterase NEGATIVE (NEGATIVE); Mucus MANY /HPF (NEGATIVE); Nitrite NEGATIVE (NEGATIVE); Protein,Urine Dip 30 (Negative); RBC 0-2 /HPF (0-2); Specific Gravity 1.024 (1.005-1.025); Urobilinogen NEGATIVE mg/dL (0-1)
--- NOTE | 2018-10-11 15:16 | XRAY ---
Indication: Abdomen pain. Two-dimensional gallbladder sonogram performed. Comparison: August 31, 2018. Gallbladder normally distended again with 1.6 cm gallstone near the neck of the gallbladder. Spinning Room Worker notes gallstone is not mobile. No gallbladder wall thickening or pericholecystic fluid. Common bile duct measures 4.6 mm. No intrahepatic biliary distention. Again mild fatty echogenic liver without focal solid/cystic mass or ascites. Remaining visualized pancreas and right kidney appear sonographically normal. Right kidney measures 10.5 cm in length. Impression: 1. Stable non-mobile gallstone near the neck of the gallbladder. Again negative for cholecystitis or biliary distention. 2. Stable fatty liver.
[2018-10-11] MEDS ORDERED: Klor Con 10 MEQ PO ONE ×2 (15:25→15:41)
[2018-10-11 16:50] VITALS: BP 123/62; PULSE 71; O2SAT 95
== END 2018-10-11 16:48 | disposition home or self-care (01) ==
LOC: ED 13:17
DX: K80.50 Calculus of bile duct without cholangitis or cholecystitis without obstruction (principal); I10 Essential (primary) hypertension; M19.90 Unspecified osteoarthritis, unspecified site; K21.9 Gastro-esophageal reflux disease without esophagitis; Z79.899 Other long term (current) drug therapy
CPT/HCPCS: 36000; 36415; 76705; 80053; 81001; 82150; 83605; 83690; 84484; 85025; 87086; 93005; 93041; 96360; 96374; 96375; 99284; P9612; J1170; J2405; A9270-GY

== ENCOUNTER 2018-10-13 07:07 | Inpatient (IN) | payer MEDICARE, OTHER ==
[2018-10-13] MEDS ORDERED: Sodium Chloride 0.9% 1000 ML 1,000 ML IV STA (07:23)
[2018-10-13] MEDS ORDERED: Zofran 4 MG/2 ML VIAL IV ONE (07:23)
[2018-10-13] MEDS ORDERED: MORPHINE SULFATE 2 MG INJ IV ONE (07:23)
[2018-10-13] MEDS ORDERED: PROTONIX 40 MG IV IV ONE ×2 (07:23→08:10)
[2018-10-13 07:55] LABS: BASOPHIL % 0.2 % (0.0-0.4); Basophil (Absolute #) 0.03 (0-0.4); Eosinophil % 0.5 % (0.00-5.0); Eosinophil (Absolute #) 0.08 (0-0.5); Granulocyte Absolute (ANC) 12.89 (1.4-6.9); Granulocytes % 81.8 % (36.0-66.0); Hemoglobin 13.2 gm/dl (12.0-16.0); Lymphocytes % 9.5 % (24.0-44.0); Mean Cell Volume 82.3 fl (78-100); Mean Corpuscular Hemoglobin 27.2 pg (26-32); Mean Platelet Volume 9.6 fl (6-9.5); Monocyte (Absolute #) 1.26 (0.0-1.3); Platelet Count 289 K/mm3 (150-450); Red Blood Count 4.86 M/mm3 (4.1-5.4); Red Cell Distribution Width 14.1 % (11.5-14.0); White Blood Count 15.8 K/mm3 (4.0-10.5)
[2018-10-13 07:56] LABS: ALBUMIN 4.4 g/dL (3.5-5.0); ALKALINE PHOSPHATASE 129 U/L (38-126); ANION GAP 16.2 MEQ/L (5-15); BLOOD UREA NITROGEN 19 mg/dL (7-17); CHLORIDE 100 mmol/L (98-107); Calcium 10.1 mg/dL (8.4-10.2); Carbon Dioxide 24 mmol/L (22-30); Glucose 146 mg/dL (74-106); LIPASE 170 U/L (23-300); Potassium 3.6 mmol/L (3.5-5.1); SGOT/AST 27 U/L (14-36); SGPT/ALT 19 U/L (0-35); SODIUM 137 mmol/L (137-145); Total Protein 8.2 g/dL (6.3-8.2)
[2018-10-13] MEDS ORDERED: FLAGYL 500 MG IVPB 500 MG/100 ML BAG IV STA (08:02)
[2018-10-13] MEDS ORDERED: LEVOFLOXACIN 750MG/150ML D5W 750 MG/150 ML BAG IV STA (08:03)
[2018-10-13] MEDS ORDERED: FLAGYL 500 MG IVPB 500 MG/100 ML BAG IV ONE (08:10)
[2018-10-13] MEDS ORDERED: LEVOFLOXACIN 750MG/150ML D5W 750 MG/150 ML BAG IV ONE (08:10)
[2018-10-13] MEDS ORDERED: Zofran 4 MG/2 ML VIAL ONE (08:10)
[2018-10-13] MEDS ORDERED: Sodium Chloride 0.9% 1000 ML 1,000 ML ONE (08:10)
[2018-10-13] MEDS ORDERED: MORPHINE SULFATE 2 MG INJ ONE (08:10)
[2018-10-13 08:24] LABS: Lactic Acid 2.4 (0.4-2.0)
--- NOTE | 2018-10-13 08:30 | ERPHSYRPT ---
- History of Present Illness Historian: patient Exam Limitations: no limitations Patient Subjective Stated Complaint: right abd and flank pain Triage Nursing Assessment: ambulated to room per self. skin w/d, color normal, resp easy. holding right abd and back. abd soft, tender Physician History: Pt is a 68 y/o female that presented to the ER with severe RUQ and right flank pain. Pt states, she is schedulled for a lap shawn on Monday with Dr Whatley. Pt states, some nause, but no vomiting. No F/C/S. No SOB or cough. No chest discomfort or palpitations. Pt denies dysuria, frequency and urgency. Timing/Duration: today Activities at Onset: none Quality: cramping, throbbing Abdominal Pain Onset Location: RUQ, flank Pain Radiation: RUQ, flank Severity of Pain-Max: severe Severity of Pain-Current: severe Modifying Factors: Improves With: analgesics Associated Symptoms: nausea Allergies/Adverse Reactions: Penicillins Allergy (Verified 10/11/18 13:32) Home Medications: Azilsartan Med/Chlorthalidone [Edarbyclor 40-25 mg Tablet] 1 each PO DAILY 08/31 [History] Potassium Chloride 10 Meq Tab* [Klor Con 10 MEQ] 10 meq PO DAILY 08/31/18 [ History] Aspirin EC 81 mg [Ecotrin 81 mg] 81 mg PO DAILY 09/13/18 [History] Esomeprazole Magnesium [Nexium] 40 mg PO DAILY 10/11/18 [History] Hx Tetanus, Diphtheria Vaccination/Date Given: No Hx Influenza Vaccination/Date Given: Yes Hx Pneumococcal Vaccination/Date Given: Yes - Review of Systems Constitutional: No Fever, No Chills Eyes: No Symptoms Ears, Nose, & Throat: No Symptoms Respiratory: No Cough, No Dyspnea Cardiac: No Chest Pain, No Edema, No Syncope Abdominal/Gastrointestinal: Abdominal Pain, Nausea Genitourinary Symptoms: No Dysuria Musculoskeletal: No Back Pain, No Neck Pain Skin: No Rash Neurological: No Dizziness, No Focal Weakness, No Sensory Changes - Past Medical History Pertinent Past Medical History: Yes Neurological History: No Pertinent History ENT History: No Pertinent History Cardiac History: Hypertension Respiratory History: No Pertinent History Endocrine Medical History: No Pertinent History Musculoskeletal History: Arthritis GI Medical History: GERD, Gallbladder Disease History: No Pertinent History Psycho-Social History: No Pertinent History Female Reproductive Disorders: No Pertinent History - Past Surgical History Past Surgical History: Yes Neuro Surgical History: No Pertinent History Cardiac: No Pertinent History Respiratory: No Pertinent History Gastrointestinal: No Pertinent History Genitourinary: No Pertinent History Musculoskeletal: Orthopedic Surgery Female Surgical History: No Pertinent History Other Surgical History: total hip 2018 right - Social History Smoking Status: Former smoker Exposure to second hand smoke: No Drug Use: none Patient Lives Alone: Yes - Nursing Vital Signs Nursing Vital Signs: Initial Vital Signs Temperature 97.6 F 10/13/18 07:13 Pulse Rate 90 10/13/18 07:13 Respiratory Rate 20 10/13/18 07:13 Blood Pressure 154/113 10/13/18 07:13 O2 Sat by Pulse Oximetry 97 10/13/18 07:13 Pain Scale Pain Intensity 10 - Physical Exam General Appearance: no apparent distress, alert Eye Exam: PERRL/EOMI, eyes nml inspection Ears, Nose, Throat Exam: normal ENT inspection, pharynx normal, moist mucous membranes Respiratory Exam: normal breath sounds, lungs clear, No respiratory distress Cardiovascular Exam: regular rate/rhythm, normal heart sounds Gastrointestinal/Abdomen Exam: soft, tenderness (Severe in RUQ and right flank) Back Exam: CVA tenderness (on R) Extremity Exam: normal inspection, normal range of motion, pelvis stable Neurologic Exam: alert, oriented x 3, cooperative, normal mood/affect, nml cerebellar function, sensation nml, No motor deficits SpO2: 97 - Course Nursing assessment & vital signs reviewed: Yes - CT Exams Abdomen/Pelvis CT Interpretation: Other (Distended gallbladder. No wall thickening or pericholecystic fluid.) Ordered Tests: Active Orders 24 hr Category Date Time Status IV Insertion STAT Care 10/13/18 07:23 Active NPO (ED) STAT Care 10/13/18 07:23 Active ABDOMEN AND PELVIS W/0 CONTRAS [CT] Stat Exams 10/13/18 07:24 Taken CBC W DIFF Stat Lab 10/13/18 07:30 Completed CMP Stat Lab 10/13/18 07:30 Completed LIPASE Stat Lab 10/13/18 07:30 Completed Lactic Acid Stat Lab 10/13/18 07:23 Ordered UA W/RFX UR CULTURE Stat Lab 10/13/18 07:35 Ordered Medication Summary Generic Name Dose Route Start Last Admin Trade Name Freq PRN Reason Stop Dose Admin Metronidazole 500 mg in 100 mls @ 200 mls/hr 10/13/18 08:02 10/13/18 08:20 Flagyl 500 Mg Ivpb IV 10/13/18 08:31 200 mls/hr STAT STA 200 mls/hr Administration Levofloxacin/Dextrose 750 mg in 150 mls @ 100 mls/hr 10/13/18 08:03 Levofloxacin 750mg/150ml D5w IV 10/13/18 09:32 STAT STA Discontinued Medications Generic Name Dose Route Start Last Admin Trade Name Minna PRN Reason Stop Dose Admin Sodium Chloride 1,000 mls @ 999 mls/hr 10/13/18 07:23 10/13/18 08:21 Sodium Chloride 0.9% 1000 Ml IV 10/13/18 08:23 999 mls/hr .Q1H1M STA Administration Sodium Chloride Confirm 10/13/18 08:10 Sodium Chloride 0.9% 1000 Ml Administered 10/13/18 08:11 Dose 1,000 mls @ ud .ROUTE .STK-MED ONE Metronidazole Confirm 10/13/18 08:10 Flagyl 500 Mg Ivpb Administered 10/13/18 08:11 Dose 500 mg in 100 mls @ ud IV .STK-MED ONE Levofloxacin/Dextrose Confirm 10/13/18 08:10 Levofloxacin 750mg/150ml D5w Administered 10/13/18 08:11 Dose 750 mg in 150 mls @ ud IV .STK-MED ONE Morphine Sulfate 2 mg 10/13/18 07:23 10/13/18 08:20 Morphine Sulfate 2 Mg Inj IV 10/13/18 07:24 2 mg STAT ONE Administration Morphine Sulfate Confirm 10/13/18 08:10 Morphine Sulfate 2 Mg Inj Administered 10/13/18 08:11 Dose 2 mg .ROUTE .STK-MED ONE Ondansetron HCl 4 mg 10/13/18 07:23 10/13/18 08:21 Zofran 4 Mg/2 Ml Vial IV 10/13/18 07:24 4 mg STAT ONE Administration Ondansetron HCl Confirm 10/13/18 08:10 Zofran 4 Mg/2 Ml Vial Administered 10/13/18 08:11 Dose 4 mg .ROUTE .STK-MED ONE Pantoprazole Sodium 40 mg 10/13/18 07:23 10/13/18 08:21 Protonix 40 Mg Iv IV 10/13/18 07:24 40 mg STAT ONE Administration Pantoprazole Sodium Confirm 10/13/18 08:10 Protonix 40 Mg Iv Administered 10/13/18 08:11 Dose 40 mg IV .STK-MED ONE Lab/Rad Data: Laboratory Result Diagrams 10/13/18 07:30 10/13/18 07:30 Laboratory Results 10/13/18 10/13/18 Range/Units 07:30 07:30 WBC 15.8 H (4.0-10.5) K/mm3 RBC 4.86 (4.1-5.4) M/mm3 Hgb 13.2 (12.0-16.0) gm/dl Hct 40.0 (35-47) % MCV 82.3 (78-100) fl MCH 27.2 (26-32) pg MCHC 33.0 (32-36) g/dl RDW 14.1 H (11.5-14.0) % Plt Count 289 (150-450) K/mm3 MPV 9.6 H (6-9.5) fl Gran % 81.8 H (36.0-66.0) % Eos # (Auto) 0.08 (0-0.5) Absolute Lymphs (auto) 1.50 (1.0-4.6) Absolute Monos (auto) 1.26 (0.0-1.3) Lymphocytes % 9.5 L (24.0-44.0) % Monocytes % 8.0 (0.0-12.0) % Eosinophils % 0.5 (0.00-5.0) % Basophils % 0.2 (0.0-0.4) % Absolute Granulocytes 12.89 H (1.4-6.9) Basophils # 0.03 (0-0.4) Sodium 137 (137-145) mmol/L Potassium 3.6 (3.5-5.1) mmol/L Chloride 100 (98-107) mmol/L Carbon Dioxide 24 (22-30) mmol/L Anion Gap 16.2 H (5-15) MEQ/L BUN 19 H (7-17) mg/dL Creatinine 0.90 (0.52-1.04) mg/dL Estimated GFR > 60.0 ML/MIN Glucose 146 H (74-106) mg/dL Calcium 10.1 (8.4-10.2) mg/dL Total Bilirubin 0.70 (0.2-1.3) mg/dL AST 27 (14-36) U/L ALT 19 (0-35) U/L Alkaline Phosphatase 129 H (38-126) U/L Serum Total Protein 8.2 (6.3-8.2) g/dL Albumin 4.4 (3.5-5.0) g/dL Lipase 170 (23-300) U/L - Progress Progress: unchanged Progress Note: Pt had a work up i the ED, that showed mild elevation in Alk phos, leukocytosis and elevated lactate. DR whatley saw the pt in the ED, and asked the pt to be admitted to her PCP, continue her ABX, and she will have surgery as scheduled on Monday. Discussed with : Claudy Will see patient in: hospital (full admit) Counseled pt/family regarding: lab results, diagnosis - Departure Time of Disposition: 08:36 Departure Disposition: In-patient Admission Clinical Impression: Cholecystitis, Biliary colic Condition: Stable Critical Care Time: No Referrals: LINDA NERI [Primary Care Provider] -
[2018-10-13] MEDS ORDERED: Zofran 4 MG/2 ML VIAL IV PRN (08:37)
[2018-10-13] MEDS ORDERED: DILAUDID 2 MG INJECTION IV STA (08:43)
[2018-10-13] MEDS ORDERED: Hydromorphone 1 mg/ml Ampule ONE (08:47)
[2018-10-13] MEDS ORDERED: ENOXAPARIN SODIUM SQ SCH (10:00)
[2018-10-13 10:02] LABS: Appearance SLIGHTLY CLOUDY (CLEAR); Bacteria FEW /HPF (NEGATIVE); Bilirubin NEGATIVE (NEGATIVE); Blood SMALL Ery/ul (0-5); Epithelial Cells FEW /HPF (FEW); Glucose NEGATIVE (NEGATIVE); Hyaline Casts 0-2 /LPF (0-2); Ketones NEGATIVE (NEGATIVE); Leukocyte Esterase NEGATIVE (NEGATIVE); Mucus SLIGHT /HPF (NEGATIVE); Nitrite NEGATIVE (NEGATIVE); Protein,Urine Dip NEGATIVE (Negative); Specific Gravity 1.024 (1.005-1.025); Urobilinogen NEGATIVE mg/dL (0-1)
[2018-10-13] MEDS: Sodium Chloride 0.9% 1000 ML 1,000 ML IV SCH ×2 (10:51→22:10)
[2018-10-13] MEDS: FLAGYL 500 MG IVPB 500 MG/100 ML BAG IV SCH ×3 (12:05→23:21)
[2018-10-13] MEDS: DILAUDID 2 MG INJECTION IV PRN ×3 (12:52→20:37)
[2018-10-13] MEDS ORDERED: TYLENOL 325 MG PO PRN (13:42)
[2018-10-13 13:57] LABS: Lactic Acid 1.9 (0.4-2.0)
[2018-10-13] MEDS ORDERED: MEDICATION INTERVENTION PO SCH (14:30)
[2018-10-13] MEDS: TORAdol 30 mg Injection IV PRN (18:43)
--- NOTE | 2018-10-13 19:05 | XRAY ---
Indication: Right upper quadrant abdomen pain. Cholelithiasis. Multiple contiguous axial images obtained through the abdomen and pelvis without contrast as ordered. Comparison: August 31, 2018. Lung bases again demonstrates minimal fibrosis/scarring. No infiltrate or effusion. Heart is not enlarged. Stable small hiatal hernia. Right hip bipolar prosthesis again produces beam artifact limiting these levels. Noncontrasted stomach and bowel loops appear nonobstructed. Normal appendix. Again descending and sigmoid diverticulosis without diverticulitis. No free fluid/air. Stable small midabdomen subcentimeter mesenteric nodes with stranding favoring adenitis. Gallbladder distended without gallstones or biliary distention. Stable hepatic/splenic calcified granulomas, nonobstructing right renal calculus, and left mid renal exophytic cyst. Remaining liver, gallbladder, pancreas, spleen, adrenal glands, kidneys, ureters, bladder, and uterus appear unremarkable for noncontrast exam. There remains minimal aortic calcifications without AAA. Osseous structures intact again with mild degenerative changes throughout the spine and mild levorotoscoliosis. Impression: 1. Stable small mid abdomen mesenteric nodes with stranding favoring mesenteric adenitis. 2. Stable distended gallbladder without gallstones. See recent gallbladder sonogram October 11, 2018. 3. Stable small hiatal hernia, nonobstructing right renal micro-calculus, left renal cyst, colonic diverticulosis, and evidence for old granulomatous disease. Comment: Preliminary interpretation was made by [facility]. No critical discrepancy. CTDI 23.68
[2018-10-14] MEDS: DILAUDID 2 MG INJECTION IV PRN (00:36)
[2018-10-14] MEDS: FLAGYL 500 MG IVPB 500 MG/100 ML BAG IV SCH ×3 (05:29→17:53)
[2018-10-14 05:50] LABS: BASOPHIL % 0.1 % (0.0-0.4); Basophil (Absolute #) 0.01 (0-0.4); Eosinophil % 0.3 % (0.00-5.0); Eosinophil (Absolute #) 0.03 (0-0.5); Granulocyte Absolute (ANC) 7.94 (1.4-6.9); Granulocytes % 74.4 % (36.0-66.0); Hematocrit 33.2 % (35-47); Hemoglobin 10.9 gm/dl (12.0-16.0); INR 1.28 (0.8-3.0); Lymphocyte (Absolute #) 1.03 (1.0-4.6); Lymphocytes % 9.6 % (24.0-44.0); Mean Cell Volume 83.6 fl (78-100); Mean Corpuscular Hgb Concent. 32.8 g/dl (32-36); Mean Platelet Volume 9.1 fl (6-9.5); Monocyte (Absolute #) 1.67 (0.0-1.3); Monocytes % 15.6 % (0.0-12.0); PROTIME 14.9 SECONDS (9.95-12.35); Platelet Count 205 K/mm3 (150-450); Red Blood Count 3.97 M/mm3 (4.1-5.4); Red Cell Distribution Width 13.8 % (11.5-14.0); White Blood Count 10.7 K/mm3 (4.0-10.5)
[2018-10-14 05:51] LABS: Mean Corpuscular Hemoglobin 27.4 pg (26-32)
[2018-10-14 05:55] LABS: ALBUMIN 3.2 g/dL (3.5-5.0); ALKALINE PHOSPHATASE 81 U/L (38-126); ANION GAP 10.9 MEQ/L (5-15); BLOOD UREA NITROGEN 11 mg/dL (7-17); CHLORIDE 99 mmol/L (98-107); Calcium 8.8 mg/dL (8.4-10.2); Carbon Dioxide 27 mmol/L (22-30); Creatinine 1 0.91 mg/dL (0.52-1.04); Glucose 113 mg/dL (74-106); Potassium 3.6 mmol/L (3.5-5.1); SGOT/AST 17 U/L (14-36); SGPT/ALT 14 U/L (0-35); SODIUM 134 mmol/L (137-145); Total Protein 6.2 g/dL (6.3-8.2)
[2018-10-14] MEDS ORDERED: CLINDAMYCIN-D5W 900 MG/50 ML*** 900 MG/50 ML BAG IV ONE (06:08)
[2018-10-14] MEDS ORDERED: Levofloxacin 500MG/100ML D5W 500 MG/100 ML BAG IV ONE (06:08)
[2018-10-14] MEDS ORDERED: Levofloxacin 500MG/100ML D5W 500 MG/100 ML BAG IV SCH (06:15)
[2018-10-14] MEDS ORDERED: CLINDAMYCIN-D5W 900 MG/50 ML*** 900 MG/50 ML BAG IV SCH (06:30)
[2018-10-14] MEDS ORDERED: Lactated Ringers 1,000 ML IV SCH (07:00)
[2018-10-14] MEDS: TORAdol 30 mg Injection IV PRN (07:47)
[2018-10-14] MEDS ORDERED: Lactated Ringers 1,000 ML IV ONE (07:59)
[2018-10-14] MEDS ORDERED: Sensorcaine 0.25% 10 ML ONE (07:59)
[2018-10-14 08:18] LABS: Slide Review 1 YES
[2018-10-14] MEDS ORDERED: LEVOFLOXACIN 750MG/150ML D5W 750 MG/150 ML BAG IV SCH (10:00)
[2018-10-14] MEDS ORDERED: CHLORTHALIDONE PO SCH (10:00)
[2018-10-14] MEDS ORDERED: AZILSARTAN MED PO SCH (10:00)
[2018-10-14] MEDS ORDERED: MORPHINE SULFATE 4 MG INJ IV PRN (10:43)
[2018-10-14] MEDS: D5W/0.45NS W/ 20mEq KCl 1000 ML 1,000 ML IV SCH ×2 (10:59→23:27)
[2018-10-14] MEDS: PATIENT OWN MEDICATION PO SCH (11:00)
[2018-10-14] MEDS: Klor Con 10 MEQ PO SCH (11:00)
[2018-10-14] MEDS: PROTONIX 40 MG IV IV SCH (11:00)
--- NOTE | 2018-10-14 11:31 | PCM.NOTE ---
Date and Time: 10/14/181126 Subjective Assessment: Patient just came back to floor from having lap shawn done. She reports her pain is under control and over all she is feeling better than the night she came into the ER. No other concerns at this time. Her daughter is at the bedside. - Review of Systems Constitutional: No Symptoms Eyes: No Symptoms Ears, Nose, & Throat: No Symptoms Respiratory: No Symptoms Cardiac: No Symptoms Abdominal/Gastrointestinal: Abdominal Pain Genitourinary Symptoms: No Symptoms Musculoskeletal: No Symptoms Skin: No Symptoms Objective Exam General Appearance: no apparent distress, alert, obese Neurologic Exam: alert, cooperative, normal mood/affect Skin Exam: normal color, warm, dry Respiratory Exam: normal breath sounds, lungs clear, No crackles/rales, No rhonchi, No wheezing Cardiovascular Exam: regular rate/rhythm, normal heart sounds, No murmur, No friction rub, No gallop Gastrointestinal/Abdomen Exam: soft, other (hypoactive bowel sounds; drain in place; bandages in place) Extremity Exam: other (no c/c/e) OBJECTIVE DATA Vital Signs: Vital Signs - 24 hr Temp Pulse Resp BP Pulse Ox 10/14/18 08:00 98.2 F 97 H 17 121/59 96 10/14/18 07:24 99.0 F 95 H 20 124/57 95 10/14/18 04:08 99.0 F 95 H 20 124/57 95 10/14/18 00:05 98.5 F 77 20 126/60 99 10/13/18 20:14 96 10/13/18 20:00 98.4 F 84 20 129/60 96 10/13/18 16:00 98.2 F 78 18 138/77 97 Oxygen-Last 24 hours O2 Percentage 2 Liters = 28% O2 Percentage 2 Liters = 28% O2 Percentage 2 Liters = 28% Pain Assessment - Last Documented Pain Intensity 0 Pain Scale Used 0-10 Pain Scale Intake and Output: Intake & Output 10/12/18 10/13/18 10/14/18 10/15/18 06:59 06:59 06:59 06:59 Intake Total 2871 Output Total 1550 220 Balance 1321 -220 Weight 99.1 kg 99.1 kg Lab Results: Lab Results-Last 24 Hours 10/13/18 10/14/18 10/14/18 Range/Units 10:24 05:05 05:05 WBC 10.7 H (4.0-10.5) K/mm3 RBC 3.97 L (4.1-5.4) M/mm3 Hgb 10.9 L (12.0-16.0) gm/dl Hct 33.2 L (35-47) % MCV 83.6 (78-100) fl MCH 27.4 (26-32) pg MCHC 32.8 (32-36) g/dl RDW 13.8 (11.5-14.0) % Plt Count 205 (150-450) K/mm3 MPV 9.1 (6-9.5) fl Gran % 74.4 H (36.0-66.0) % Eos # (Auto) 0.03 (0-0.5) Absolute Lymphs (auto) 1.03 (1.0-4.6) Absolute Monos (auto) 1.67 H (0.0-1.3) Lymphocytes % 9.6 L (24.0-44.0) % Monocytes % 15.6 H (0.0-12.0) % Eosinophils % 0.3 (0.00-5.0) % Basophils % 0.1 (0.0-0.4) % Absolute Granulocytes 7.94 H (1.4-6.9) Basophils # 0.01 (0-0.4) PT (9.95-12.35) SECONDS INR (0.8-3.0) Sodium 134 L (137-145) mmol/L Potassium 3.6 (3.5-5.1) mmol/L Chloride 99 (98-107) mmol/L Carbon Dioxide 27 (22-30) mmol/L Anion Gap 10.9 (5-15) MEQ/L BUN 11 (7-17) mg/dL Creatinine 0.91 (0.52-1.04) mg/dL Estimated GFR > 60.0 ML/MIN Glucose 113 H (74-106) mg/dL Lactic Acid 1.9 (0.4-2.0) Calcium 8.8 (8.4-10.2) mg/dL Total Bilirubin 0.90 (0.2-1.3) mg/dL AST 17 (14-36) U/L ALT 14 (0-35) U/L Alkaline Phosphatase 81 (38-126) U/L Serum Total Protein 6.2 L (6.3-8.2) g/dL Albumin 3.2 L (3.5-5.0) g/dL Slides for Path Review YES 10/14/18 Range/Units 05:05 WBC (4.0-10.5) K/mm3 RBC (4.1-5.4) M/mm3 Hgb (12.0-16.0) gm/dl Hct (35-47) % MCV (78-100) fl MCH (26-32) pg MCHC (32-36) g/dl RDW (11.5-14.0) % Plt Count (150-450) K/mm3 MPV (6-9.5) fl Gran % (36.0-66.0) % Eos # (Auto) (0-0.5) Absolute Lymphs (auto) (1.0-4.6) Absolute Monos (auto) (0.0-1.3) Lymphocytes % (24.0-44.0) % Monocytes % (0.0-12.0) % Eosinophils % (0.00-5.0) % Basophils % (0.0-0.4) % Absolute Granulocytes (1.4-6.9) Basophils # (0-0.4) PT 14.9 H (9.95-12.35) SECONDS INR 1.28 (0.8-3.0) Sodium (137-145) mmol/L Potassium (3.5-5.1) mmol/L Chloride (98-107) mmol/L Carbon Dioxide (22-30) mmol/L Anion Gap (5-15) MEQ/L BUN (7-17) mg/dL Creatinine (0.52-1.04) mg/dL Estimated GFR ML/MIN Glucose (74-106) mg/dL Lactic Acid (0.4-2.0) Calcium (8.4-10.2) mg/dL Total Bilirubin (0.2-1.3) mg/dL AST (14-36) U/L ALT (0-35) U/L Alkaline Phosphatase (38-126) U/L Serum Total Protein (6.3-8.2) g/dL Albumin (3.5-5.0) g/dL Slides for Path Review Radiology Exams: Radiology Procedures Category Date Time Status ABDOMEN AND PELVIS W/0 CONTRAS [CT] Stat Exams 10/13/18 07:24 Completed Assessment/Plan (1) Acute cholecystitis Current Visit: Yes Status: Acute Assessment & Plan: s/p lap shawn today. Continue management per general surgeon. Code(s): K81.0 - ACUTE CHOLECYSTITIS (2) Essential hypertension Current Visit: Yes Status: Acute Assessment & Plan: Currently controlled. Continue her home medication. Code(s): I10 - ESSENTIAL (PRIMARY) HYPERTENSION (3) GERD (gastroesophageal reflux disease) Current Visit: Yes Status: Acute Assessment & Plan: Continue ppi. Code(s): K21.9 - GASTRO-ESOPHAGEAL REFLUX DISEASE WITHOUT ESOPHAGITIS
[2018-10-14] MEDS: MEFOXIN 1 Gm/ D5W 50 Ml** 1 G/50 ML ML IV SCH ×3 (11:41→23:36)
[2018-10-14] MEDS: NORCO 5/325 MG PO PRN ×2 (13:24→23:30)
[2018-10-15] MEDS: FLAGYL 500 MG IVPB 500 MG/100 ML BAG IV SCH ×3 (00:14→11:07)
[2018-10-15] MEDS: MEFOXIN 1 Gm/ D5W 50 Ml** 1 G/50 ML ML IV SCH ×2 (05:19→11:42)
[2018-10-15 06:03] LABS: ALBUMIN 2.8 g/dL (3.5-5.0); BILIRUBIN,TOTAL 0.4 mg/dL (0.2-1.3); Direct Bilirubin 0.4 mg/dL (0.0-0.4); Total Protein 5.5 g/dL (6.3-8.2)
[2018-10-15] MEDS: PATIENT OWN MEDICATION PO SCH (10:23)
[2018-10-15] MEDS: Klor Con 10 MEQ PO SCH (10:23)
[2018-10-15] MEDS: PROTONIX 40 MG IV IV SCH (10:23)
[2018-10-15] MEDS: NORCO 5/325 MG PO PRN (10:25)
--- NOTE | 2018-10-15 11:03 | PCM.DCORD ---
- Discharge Discharge Date: 10/15/18 Disposition: Home, Self-Care Condition: Stable Prescriptions: New Hydrocodone/APAP 5-325 Tab^^^ [[place]burn 5-325 Tablet^^^] 1 each PO Q4H PRN #26 tablet MDD 6 PRN Reason: Pain Continue Azilsartan Med/Chlorthalidone [Edarbyclor 40-25 mg Tablet] 1 each PO DAILY Potassium Chloride 10 Meq Tab* [Klor Con 10 MEQ] 10 meq PO DAILY Aspirin EC 81 mg [Ecotrin 81 mg] 81 mg PO DAILY Esomeprazole Magnesium [Nexium] 20 mg PO DAILY Follow up with: LULU TEJEDA [Primary Care Provider] - 10/22/18 9:30 am MADI CORNELIUS [COURTESY STAFF] - 10/29/18 8:50 am ([facility] [place]
[2018-10-15 12:32] VITALS: BP 107/58; PULSE 67; O2SAT 94
--- NOTE | 2018-10-15 12:44 | HP ---
HISTORY OF PRESENT ILLNESS: This is a 68 year-old patient with history of right upper quadrant pain. She reports she was recently in our emergency room on 10/11/2018 with right upper quadrant pain. She had gallbladder ultrasound done at that time that revealed a stable nonmobile gallstone near the neck of the gallbladder, again negative cholecystitis or biliary distention, stable fatty liver, this was compared to gallbladder ultrasound from 08/31/2018. The patient reports she has been having problems on and off for months with her gallbladder, what she felt like was gallbladder attack was the worst that she has ever had until she had one last night. She reports she was unable to sleep at all last night due to the pain. She reports the pain is in her right upper quadrant and also into her back and she will feel queasy with this. She usually vomits one time. She said nothing seems to make it better. Certain foods seem to make it worse. When she has an episode she reports they last several hours until she usually comes to the emergency room for pain medicine. She was scheduled for cholecystectomy this coming Monday with Dr. Pizarro. He saw her in the emergency department and requested that she be admitted to primary medicine service and he would consult for possible cholecystectomy. PAST MEDICAL HISTORY: Hypertension, gastroesophageal reflux disease. PAST SURGICAL HISTORY: Right hip replacement. REVIEW OF SYSTEMS: The patient denies any constipation or diarrhea. No dysuria. No hematuria. No cough. No shortness of breath. No chest pain. Otherwise review of systems negative. MEDICATIONS: Please see the medication reconciliation list which I have reviewed. ALLERGIES: PENICILLIN. SOCIAL HISTORY: No tobacco. Rare alcohol. She lives alone. FAMILY HISTORY: Her mother is and in her 90's from old age. Her father is and had history rheumatic fever, tuberculosis and colon cancer. PHYSICAL EXAMINATION: VITAL SIGNS: Temperature current 98.0F, temperature max 98.0F, heart rate 71 to 90, respiratory rate 15 to 20, blood pressure 136 to 154 over 62 to 113 currently 136/64,.weight 99.1 kg. Oxygen saturation 93 to 99% on room air to 2 liters nasal cannula. GENERAL: The patient is a pleasant talkative lady sitting up in bed in no acute distress with her daughter at the bedside. CVS: She has a regular rate and rhythm. No murmurs, gallops or rubs. CHEST: Clear to auscultation bilaterally. No crackles or wheezes. ABDOMEN: Soft, mild right upper quadrant tenderness. No guarding. No rigidity. Normal bowel sounds. EXTREMITIES: No clubbing, cyanosis or edema. SKIN: Warm, dry and intact. LABORATORY DATA AND TESTS: White blood cell count 15,800 with 81% granulocytes. Glucose 146, lactic acid 2.4. UA with 3 to 5 white blood cells, 6 to 10 red blood cells. Urine culture in lab. CT scan of the abdomen and pelvis revealed distended gallbladder. No evidence of pancreatitis. Please see the radiologist report for the full dictation. ASSESSMENT AND PLAN: 1) RIGHT UPPER QUADRANT PAIN CONCERNING FOR ACUTE CHOLECYSTITIS: Dr. Pizarro has been consulted and is following the patient. She has been started on metronidazole and Levaquin. She has hydromorphone ordered as needed for pain. Will repeat CMP and CBC in the morning. 2) BACTERURIA: Her urine culture is in lab. 3) HYPERTENSION: Will continue her home antihypertensive medications. 4) GASTROESOPHAGEAL REFLUX DISEASE: She has pantoprazole ordered.
--- NOTE | 2018-10-15 13:27 | OP ---
SURGERY DATE/TIME: 10/14/2018829 PREOPERATIVE DIAGNOSIS: Acute exacerbation of chronic cholecystitis, question gallbladder polyp, sludge or stones. POSTOPERATIVE DIAGNOSIS: Acute exacerbation of chronic cholecystitis, question gallbladder polyp, sludge or stones. PROCEDURE: Laparoscopic cholecystectomy. SURGEON: Dr. Charbel Pizarro. ANESTHESIA: General. ESTIMATED BLOOD LOSS: Minimal. INDICATIONS: As noted above. Risks and benefits explained in detail but not limited to and consent obtained. DESCRIPTION OF PROCEDURE AND FINDINGS: The patient was taken to the OR. General anesthesia induced. Abdomen prepped and draped in the usual sterile fashion. After official time out and no disagreement with planned procedure, a transverse incision made at the supraumbilical area. Fascia grasped and pulled upward. Veress needle inserted and tested with saline. Pneumoperitoneum accomplished insufflating opening pressure of 0-15. A 5 mm bladeless port and camera inserted without difficulty followed by two - 5 mm right upper quadrant ports and 12 mm epigastric port. The gallbladder is quite distended and had extensive omental adhesions, acute inflammation. It is quite tense that required making a separate stab wound along costal margin. Veress needle and 60 cc syringe aspirated about 35 to 40 cc of bile out to allow the gallbladder to be grasped. Given her obesity it was not easy to visualize but slowly and carefully dissection carried posterior, lateral to anterior fashion. Extensive inflammatory reaction. Slowly and carefully the cystic duct and infundibular slowly and carefully well skeletonized until critical view obtained both anterior and posteriorly. Given extensive inflammatory reaction separate large clip pot filler was used for more secure closure of cystic duct stump. A 12 port had been placed in epigastrium. Cystic duct x3 and divided in usual fashion. Cystic artery isolated directly on the gallbladder wall clipped x3 and divided in usual fashion. Gallbladder slowly and carefully dissected free from its dense almost concrete attachment to liver bed. It was quite vascular requiring clipping additional oozing side branches off the cystic artery directly on the gallbladder wall. Slowly and carefully the gallbladder dissected free. The clip came off the infundibular side spilling a small amount of bile this was reclipped and suctioned, irrigated as clear as possible. The gallbladder slowly and carefully dissected free from its dense vascular attachments to the liver bed staying directly on the gallbladder wall. Just prior to releasing from final attachments to anterior edge of liver the liver bed re-inspected. Clips noted in place in cystic duct and cystic artery stumps. No signs of bile leakage or any active bleeding. Gallbladder released from final attachments to the anterior edge of the liver, placed in Pleatman sac and pulled up through the epigastrium where it was slightly spread with a clamp allowing the thick walled gallbladder and Pleatman sac to be pulled free and passed off. Port replaced. Copious amount of irrigation accomplished laterally to the liver and subhepatic space irrigating until clear. Clips noted in place in cystic duct stump. Adequate hemostasis noted. Given the extensive inflammatory reaction it was felt that she would benefit from LOY drain and this was placed in subhepatic space out through lateral port and secured with PDS suture. Fascial defect 12 mm site closed with puncture closure device under direct vision of the camera. Pneumoperitoneum decompressed. The wound was irrigated out. Skin incision closed with 4-0 Vicryl. Steri-Strips and sterile dressing applied. 0.25% Marcaine local injected along the skin incision fascial defect. The patient tolerated the procedure well. There were no immediate complications. Findings discussed with the family out in the waiting area. Will continue on IV antibiotics tonight, possibly home tomorrow if she is tolerating p.o.
[2018-10-15] MEDS ORDERED: Ephedrine Sulfate 50 MG/ML IJ ONE (13:49)
[2018-10-15] MEDS ORDERED: BRIDION 200MG/2ML IV ONE (13:49)
[2018-10-15] MEDS ORDERED: Decadron 4 MG INJ IV ONE (13:49)
[2018-10-15] MEDS ORDERED: DIPRIVAN 200 MG/20 ML IV ONE (13:49)
[2018-10-15] MEDS ORDERED: Quelicin Fliptop 200 MG/10 ML IJ ONE (13:49)
[2018-10-15] MEDS ORDERED: TORAdol 30 mg Injection IJ ONE (13:49)
[2018-10-15] MEDS ORDERED: Zemuron 100 MG/10 ML IJ ONE (13:49)
[2018-10-15] MEDS ORDERED: Zofran 4 MG/2 ML VIAL IV ONE (13:49)
[2018-10-15] MEDS ORDERED: PHENYLEPHRINE HCL IJ ONE (13:49)
[2018-10-15] MEDS ORDERED: SUBLIMAZE 100 MCG/2 ML IV ONE (13:49)
== END 2018-10-15 13:50 | disposition home or self-care (01) | DRG 419 ==
LOC: ED 07:07 → MED SURG 09:29
PROVIDERS: ADMIT Internal Medicine; ATTEND Family Medicine
PROC: 0FT44ZZ Resection of Gallbladder, Percutaneous Endoscopic Approach (ICD-10-PCS; principal; 2018-10-14)
DX: R10.11 Right upper quadrant pain (principal); K80.40 Calculus of bile duct with cholecystitis, unspecified, without obstruction; K81.0 Acute cholecystitis; I10 Essential (primary) hypertension; K21.9 Gastro-esophageal reflux disease without esophagitis; Z79.82 Long term (current) use of aspirin; Z79.899 Other long term (current) drug therapy
CPT/HCPCS: 36000; 36415; 74176; 80053; 80076; 81001; 83605; 83690; 85025; 85610; 87086; 88304; 94760; 96365; 96367; 96374; 96375; 99140; 99284; 99285; J0330; J0694; J1100; J1170; J1650; J1885; J1956; J2270; J2370; J2405; J2704; J3010; A9270-GY

== ENCOUNTER 2023-11-28 08:13 | Day surgery (SDC) | payer MEDICARE, OTHER ==
[~2023-11-28 08:13] MED LIST: BETADINE 5% OPHTHALMIC 30 ML OP ONE; NON-FORMULARY ITEM OP ONE; TETRACAINE 0.5% STERI-UNIT SOL OP ONE; cefUROXime sodium 0.005 GM in Sodium Chloride Flush 30 ML*** 0.5 ML IJ ONE
[2023-11-28] MEDS ORDERED: Epinephrine Preservative Free 1 MG/ML IJ ONE (08:14)
[2023-11-28] MEDS ORDERED: Lactated Ringers 1,000 ML IV ONE (08:19)
[2023-11-28] MEDS: TETRACAINE 0.5% STERI-UNIT SOL OP ONE (08:41)
[2023-11-28] MEDS: Lactated Ringers 1,000 ML IV SCH (08:42)
[2023-11-28] MEDS: Ak-Dilate OPHTHALMIC*** 1.065 ML, Cyclogyl 1% OPHTH SOL 1.065 ML, GATIFLOXACIN 0.5% OPH... OP ONE (08:44)
[2023-11-28] MEDS ORDERED: Zofran 4 MG/2 ML VIAL IV PRN (10:00)
[2023-11-28] MEDS ORDERED: DIPRIVAN 200 MG/20 ML IV ONE (10:42)
[2023-11-28 11:09] VITALS: TEMP 96.4
[2023-11-28] MEDS: ACETAZOLAMIDE 250 MG TABLET PO ONE (11:17)
[2023-11-28 11:20] VITALS: RESP 16
[2023-11-28 11:25] VITALS: BP 122/44; PULSE 57; O2SAT 94
== END 2023-11-28 11:32 | disposition home or self-care (01) ==
LOC: SDC 08:13
PROVIDERS: ATTEND Ophthalmology
DX: H25.812 Combined forms of age-related cataract, left eye (principal)
CPT/HCPCS: C1780; J0171; J2704; A9270-GY

== ENCOUNTER 2023-12-26 06:30 | Day surgery (SDC) | payer MEDICARE, OTHER ==
[~2023-12-26 06:30] MED LIST changes: -TETRACAINE 0.5% STERI-UNIT SOL OP ONE
[2023-12-26] MEDS ORDERED: Lactated Ringers 1,000 ML IV ONE (06:46)
[2023-12-26 06:58] VITALS: TEMP 97.2
[2023-12-26] MEDS: Lactated Ringers 1,000 ML IV SCH (07:07)
[2023-12-26] MEDS: TETRACAINE 0.5% STERI-UNIT SOL OP ONE ×2 (07:12→07:25)
[2023-12-26] MEDS: Ak-Dilate OPHTHALMIC*** 1.065 ML, TROPICAMIDE 1.065 ML, GATIFLOXACIN 0.5% OPHTH DROPS 0... OP ONE (07:24)
[2023-12-26] MEDS ORDERED: Zofran 4 MG/2 ML VIAL IV PRN (08:15)
[2023-12-26] MEDS ORDERED: DIPRIVAN 200 MG/20 ML IV ONE (09:10)
[2023-12-26] MEDS: ACETAZOLAMIDE 250 MG TABLET PO ONE (09:48)
[2023-12-26 09:49] VITALS: PULSE 56; RESP 18
[2023-12-26 09:58] VITALS: BP 119/96; O2SAT 97
[2023-12-26] MEDS ORDERED: Epinephrine Preservative Free 1 MG/ML IJ ONE (10:00)
== END 2023-12-26 10:08 | disposition home or self-care (01) ==
LOC: SDC 06:30
PROVIDERS: ATTEND Ophthalmology
DX: H25.811 Combined forms of age-related cataract, right eye (principal)
CPT/HCPCS: 99100; J0171; J2704; A9270-GY